=== PATIENT | male | born 1965 | race Two or more races ===

== ENCOUNTER 2018-04-19 10:11 | Day surgery (SDC) | payer MEDICAID ==
[2018-04-19] VITALS (8 sets, daily range): BP systolic 124–134; BP diastolic 76–88
[~2018-04-19] VITALS: Ht 160 cm; Wt 77.6 kg
[2018-04-19] MEDS ORDERED: LR 1000ml 1,000 ML IVLG SCH (10:44)
[2018-04-19] MEDS ORDERED: Meperidine 50mg/ml Inj(FOR RIGORS ONLY) IVP PRN (10:45)
[2018-04-19] MEDS ORDERED: HYDROcodone/Acetamin 7.5/325 tab ORAL PRN (10:45)
[2018-04-19] MEDS ORDERED: LORazepam Inj 2mg/ml 1ml IV PRN (10:45)
[2018-04-19] MEDS ORDERED: DiphenhydrAMINE 50mg/ml Inj IVP PRN (10:45)
[2018-04-19] MEDS ORDERED: Ketorolac 30mg Inj IV PRN ×2 (10:45)
[2018-04-19] MEDS ORDERED: fentaNYL 100 mcg/2 mL IV PRN (10:45)
[2018-04-19] MEDS ORDERED: oxyCODONE HCL/Acetaminophen 5/325mg ORAL PRN (10:45)
[2018-04-19] MEDS ORDERED: Atropine Sulfate 0.4mg/ml inj IVP PRN (10:45)
[2018-04-19] MEDS ORDERED: Hydromorphone 0.5mg/0.5ml inj IVP PRN (10:45)
[2018-04-19] MEDS ORDERED: Midazolam 2mg/2ml Inj IVP PRN (10:45)
[2018-04-19] MEDS ORDERED: HYDROcodone/Acetamin 5/325 tab ORAL PRN (10:45)
[2018-04-19] MEDS ORDERED: Metoclopramide 10mg/2ml Inj IVP PRN (10:45)
--- NOTE | 2018-04-19 10:48 | Immediate Post-Op Evaluation ---
Immediate Post-Op Evalulation Immediate Post-Op Evalulation Procedure: EGD/Colonoscopy Date of Evaluation: Apr 19, 2018 Time of Evaluation: 12:37 IV Fluids: 800 NS Blood Products: 0 Estimated Blood Loss: 1 Urinary Output: 0 Blood Pressure Systolic: 128 Blood Pressure Diastolic: 88 Pulse Rate: 63 Respiratory Rate: 16 O2 Sat by Pulse Oximetry: 100 Temperature (Fahrenheit): 97.6 Pain Score (1-10): 1 Nausea: No Vomiting: No Complications 0 Patient Status: awake, reacts, patent, none Hydration Status: adequate David Jones MD Apr 19, 2018 10:48
--- NOTE | 2018-04-19 10:48 | 48 Hour Post Anesthesia Eval ---
Post Anesthesia Evaluation Procedure: EGD/Colonoscopy Date of Evaluation: Apr 19, 2018 Time of Evaluation: 14:56 Blood Pressure Systolic: 129 0: 83 Pulse Rate: 66 Respiratory Rate: 16 Temperature (Fahrenheit): 97.6 O2 Sat by Pulse Oximetry: 99 Airway: patent Nausea: No Vomiting: No Pain Intensity: 1 Hydration Status: adequate Cardiopulmonary Status: 0 Mental Status/LOC: patient returned to baseline Follow-up Care/Observations: 0 Post-Anesthesia Complications: 0 Follow-up care needed: ready to discharge David Jones MD Apr 19, 2018 10:48
[2018-04-19] MEDS ORDERED: TENORMIN25 MG ORAL (10:57)
[2018-04-19] MEDS ORDERED: METFORMIN HCL500 M1 ORAL (10:57)
--- NOTE | 2018-04-19 11:19 | Anethesia Preoperative Eval ---
Anesthesia Pre-op PMH/ROS General Date of Evaluation: Apr 19, 2018 Time of Evaluation: 11:38 Anesthesiologist: Rommel ASA Score: ASA 3 Mallampati Score Class I : Soft palate, uvula, fauces, pillars visible Class II: Soft palate, uvula, fauces visible Class III: Soft palate, base of uvula visible Class IV: Only hard plate visible Mallampati Classification: Class II Surgeon: Sarah Diagnosis: Abd Pain Surgical Procedure: EGD/ Colonoscopy Anesthesia History: none Social History: alcohol use - Abuse Family History: no anesthesia problems Allergies: Coded Allergies: No Known Allergies (Unverified , 04/19/18) Medications: see eMAR Patient NPO?: Yes Past Medical History Cardiovascular: Reports: HTN Pulmonary: Reports: asthma Gastrointestinal/Genitourinary: Reports: other - Esophagael Varices, Cirrohsis Endocrine: Reports: DM Other: obesity - BMI 31 Anesthesia Pre-op Phys. Exam Physician Exam Last Vital Signs Date Time Temp Pulse Resp B/P (MAP) Pulse Ox O2 Delivery O2 Flow Rate FiO2 04/19/18 11:05 97.3 65 20 127/76 99 Room Air Constitutional: NAD Neurologic: CN 2-12 intact Cardiovascular: RRR Respiratory: CTA Gastrointestinal: S/NT/ND Airway Exam Mallampati Score: Class II MO: limited ROM: limited Anesthesia Pre-op A/P Risk Assessment & Plan Assessment: ASA 3 Plan: GA Status Change Before Surgery: No David Jones MD Apr 19, 2018 11:19
--- NOTE | 2018-04-19 11:44 | Pre-Procedure Note/Attestation ---
Pre-Procedure Note/Attestation Complete Prior to Procedure Planned Procedure: not applicable Procedure Narrative: esophagogastroduodenoscopy and colonoscopy Indications for Procedure Pre-Operative Diagnosis: esoph varices, screening colonoscopy Attestation I attest that I discussed the nature of the procedure; its benefits; risks and complications; and alternatives (and the risks and benefits of such alternatives ), prior to the procedure, with the patient (or the patient's legal traffic workforce representative). I attest that, if there was a reasonable possibility of needing a blood transfusion, the patient (or the patient's legal traffic workforce representative) was given the [facility] standardized written summary, pursuant to the [place] Blood Safety Act ([place] Health and Safety Code # 1645, as amended). I attest that I re-evaluated the patient just prior to the surgery and that there has been no change in the patient's H&P, except as documented below: Ryan Smith MD Apr 19, 2018 11:44
--- NOTE | 2018-04-19 11:47 | Short Stay Surgery H&P ---
History of Present Illness History of Present Illness Chief Complaint h/o esophageal varices, screening colon HPI Meño Orr is a 52 year old male who was admitted on for Gerd, Abdominal Pain Patient History Allergies: Coded Allergies: No Known Allergies (Unverified , 04/19/18) PAST MEDICAL HISTORY: (1) HTN (hypertension) (2) DM (3) Cirrhosis (4) Esophageal varices Medication History Scheduled Atenolol (Tenormin), 50 MG ORAL DAILY, (Reported) Metformin Hcl* (Metformin Hcl*), 500 MG ORAL ZAK, (Reported) Review of Systems Cardiovascular: Reports: no symptoms Respiratory: Reports: no symptoms Skeletal: Reports: no symptoms Genitourinary: Reports: no symptoms Neurologic: Reports: no symptoms Endocrine: Reports: no symptoms, diabetes - type 2 Hematologic: Reports: anemia Physical Exam Vital Signs Last Vital Signs Date Time Temp Pulse Resp B/P (MAP) Pulse Ox O2 Delivery O2 Flow Rate FiO2 04/19/18 11:05 97.3 65 20 127/76 99 Room Air Skin: normal HENT: normal Heart: normal Lungs: normal Abdomen: normal Extremities: normal Plan Plan of Care EGD and colonoscopy Attestation Are the patient's medical conditions optimized for surgery? Attestation Response: yes Ryan Smith MD Apr 19, 2018 11:47
[2018-04-19] MEDS ORDERED: Propofol 200mg/20ml IV ONE (12:00)
[2018-04-19] MEDS ORDERED: Lidocaine 1% MPF 10mg/ml 5ml ONE (12:00)
--- NOTE | 2018-04-19 12:29 | Endoscopy Procedure Note ---
Endoscopy Procedure Note General Indication for Procedure: screening colon, h/o esophageal varices Procedures Performed: EGD, colonoscopy Operative Findings/Diagnosis: ev, hemorrhoids Specimen: none Pt Tolerated Procedure Well: Yes Estimated Blood Loss: none Anesthesia Anesthesiologist: Mony Anesthesia: MAC Inserted Devices Implant(s) used?: No Quality Quality of Bowel Preparation: Good Did scope reach the cecum?: Yes Was there any complications?: No GI Core Measures 50 yrs or older w/o bx or poly: No 10yrs. F/U not recommended: Yes If not recommended, why?: Above average risk 10 yrs. F/U needed: Yes 18 years or older w/prev. colo: No Ryan Smith MD Apr 19, 2018 12:29
--- NOTE | 2018-04-19 20:30 | Procedure Note ---
DATE OF PROCEDURE: 04/19/2018 SURGEON: Ryan Smith M.D. PROCEDURE: Upper endoscopy with banding and colonoscopy. ANESTHESIA: Per Dr. Carney. INSTRUMENT: Olympus adult flexible upper endoscope and colonoscope. REASON FOR PROCEDURE: The procedure, risks, benefits, and possible consequences, including hemorrhage, aspiration, perforation and infection, and alternative treatments, were explained to the patient/legal guardian by Dr. Ryan Smith and the patient/legal guardian understood and accepted these risks. INDICATION: History of esophageal varices in the past requiring banding, also screening colonoscopic evaluation over age 50. Never had colonoscopy. DESCRIPTION OF PROCEDURE: After informed consent was obtained and the patient was adequately sedated, Olympus upper endoscope was advanced from mouth and second portion of the stomach and retroflexion was performed in the stomach. The patient had evidence of portal hypertensive gastropathy. No evidence of any gastric varices. The patient had evidence of 4 columns of distal esophageal varices. At this time, the upper endoscope was retrieved. Banding device was placed. A total of 5 bands were successfully placed in the distal esophagus. At this time, the upper endoscope was retrieved. The patient was turned over for colonoscopy. First, rectal exam was performed which was positive for internal hemorrhoids. Then, the scope was advanced from rectum into the cecum documented by the appendiceal orifice, ileocecal valve, and right upper quadrant palpation. Quality of prep was good. The patient had evidence of rectal varices, internal hemorrhoids, otherwise normal colonoscopic examination. SUMMARY OF FINDINGS: 1. Esophageal varices, status post banding x5. 2. Portal hypertensive gastropathy. 3. Internal hemorrhoids. 4. Rectal varices. RECOMMENDATIONS: 1. The patient to come back in the office for follow up. 2. We are going to continue current medications. 3. Consider adding beta-gracie if the blood pressure and pulse is stable as followup as an outpatient. 4. The patient will need repeat endoscopy and banding in 6 weeks. Ryan Smith M.D. DR: TIA JOB#: [id number] CC:
== END 2018-04-19 14:05 | disposition home or self-care (01) ==
LOC: GAS 10:11
DX: Z12.11 Encounter for screening for malignant neoplasm of colon (principal); K76.6 Portal hypertension; K31.89 Other diseases of stomach and duodenum; I85.00 Esophageal varices without bleeding; K64.8 Other hemorrhoids; K62.89 Other specified diseases of anus and rectum; I10 Essential (primary) hypertension; E11.9 Type 2 diabetes mellitus without complications; K74.60 Unspecified cirrhosis of liver; Z79.84 Long term (current) use of oral hypoglycemic drugs; E66.9 Obesity, unspecified; Z68.30 Body mass index [BMI] 30.0-30.9, adult
CPT/HCPCS: 43244; 45378; 82962; 93005; J2704; Z7512; 94003; 94150

== ENCOUNTER 2018-07-03 10:07 | Day surgery (SDC) | payer MEDICAID ==
[2018-07-03] VITALS (8 sets, daily range): BP systolic 124–132; BP diastolic 75–82
[~2018-07-03] VITALS: Ht 160 cm; Wt 79.4 kg
--- NOTE | 2018-07-03 06:48 | Anethesia Preoperative Eval ---
Anesthesia Pre-op PMH/ROS General Date of Evaluation: July 03, 2018 Time of Evaluation: 06:48 Anesthesiologist: jessica ASA Score: ASA 4 Mallampati Score Class I : Soft palate, uvula, fauces, pillars visible Class II: Soft palate, uvula, fauces visible Class III: Soft palate, base of uvula visible Class IV: Only hard plate visible Mallampati Classification: Class II Surgeon: allen Diagnosis: cirrhosis Surgical Procedure: esophageal banding/ colonoscopy Anesthesia History: none Family History: no anesthesia problems Allergies: Coded Allergies: No Known Allergies (Unverified , 04/19/18) Medications: see eMAR Patient NPO?: Yes Past Medical History Cardiovascular: Reports: HTN Pulmonary: Reports: asthma Gastrointestinal/Genitourinary: Reports: other - cirrhosis, gibleed Endocrine: Reports: DM HEENT: Reports: other - esopagheal varices Anesthesia Pre-op Phys. Exam Physician Exam Constitutional: NAD Neurologic: CN 2-12 intact Cardiovascular: RRR Respiratory: CTA Gastrointestinal: S/NT/ND Airway Exam Mallampati Score: Class II MO: limited Neck: short TMD: 2fb ROM: limited Anesthesia Pre-op A/P Studies Pre-op Studies: EKG - nsr, first degree avb Risk Assessment & Plan Assessment: asa4 Plan: mac Status Change Before Surgery: No Pre-Antibiotics Drug: Radha Bhagat MD July 03, 2018 06:48
[~2018-07-03 10:07] MED LIST: Atropine Inj 1mg/10ml Syr IV PRN; DiphenhydrAMINE 50mg/ml Inj IVP PRN; METFORMIN HCL500 M1 ORAL; Midazolam 2mg/2ml Inj IVP PRN; TENORMIN25 MG ORAL; fentaNYL 100 mcg/2 mL IV PRN
--- NOTE | 2018-07-03 10:19 | Pre-Procedure Note/Attestation ---
Pre-Procedure Note/Attestation Complete Prior to Procedure Planned Procedure: not applicable Procedure Narrative: egd Indications for Procedure Pre-Operative Diagnosis: esophageal varices Attestation I attest that I discussed the nature of the procedure; its benefits; risks and complications; and alternatives (and the risks and benefits of such alternatives ), prior to the procedure, with the patient (or the patient's legal data entry representative). I attest that, if there was a reasonable possibility of needing a blood transfusion, the patient (or the patient's legal data entry representative) was given the [facility] standardized written summary, pursuant to the [place] Blood Safety Act ([place] Health and Safety Code # 1645, as amended). I attest that I re-evaluated the patient just prior to the surgery and that there has been no change in the patient's H&P, except as documented below: Ryan Smith MD July 03, 2018 10:19
--- NOTE | 2018-07-03 10:19 | Short Stay Surgery H&P ---
History of Present Illness History of Present Illness Chief Complaint see recent office note HPI Meño Orr is a 53 year old male who was admitted on for Cirrohsis Patient History Allergies: Coded Allergies: No Known Allergies (Unverified , 04/19/18) Medication History Scheduled Atenolol (Tenormin), 50 MG ORAL DAILY, (Reported) Metformin Hcl* (Metformin Hcl*), 500 MG ORAL ZAK, (Reported) Plan Attestation Are the patient's medical conditions optimized for surgery? Ryan Smith MD July 03, 2018 10:19
[2018-07-03] MEDS ORDERED: Propofol 200mg/20ml IV ONE (11:00)
[2018-07-03] MEDS ORDERED: Lidocaine 1% MPF 10mg/ml 5ml ONE (11:00)
--- NOTE | 2018-07-03 11:30 | Endoscopy Procedure Note ---
Endoscopy Procedure Note General Indication for Procedure: esoph varices Procedures Performed: EGD Operative Findings/Diagnosis: same Specimen: none Pt Tolerated Procedure Well: Yes Estimated Blood Loss: none Anesthesia Anesthesiologist: jessica Anesthesia: MAC Inserted Devices Implant(s) used?: No GI Core Measures 50 yrs or older w/o bx or poly: Not Applicable 10yrs. F/U recommended: Not Applicable Ryan Smith MD July 03, 2018 11:30
--- NOTE | 2018-07-03 11:31 | Short Stay Surgery H&P ---
History of Present Illness History of Present Illness Chief Complaint esoph varices HPI Meño Orr is a 53 year old male who was admitted on for Cirrohsis Patient History Allergies: Coded Allergies: No Known Allergies (Unverified , 04/19/18) PAST MEDICAL HISTORY: (1) DM (2) HTN (hypertension) (3) Esophageal varices (4) Cirrhosis Medication History Scheduled Atenolol (Tenormin), 50 MG ORAL DAILY, (Reported) Metformin Hcl* (Metformin Hcl*), 500 MG ORAL ZAK, (Reported) Review of Systems Cardiovascular: Reports: no symptoms Respiratory: Reports: no symptoms Skeletal: Reports: no symptoms Gastrointestinal: Reports: no symptoms Genitourinary: Reports: no symptoms Neurologic: Reports: no symptoms Endocrine: Reports: no symptoms Hematologic: Reports: no symptoms Physical Exam Vital Signs Last Vital Signs Date Time Temp Pulse Resp B/P (MAP) Pulse Ox O2 Delivery O2 Flow Rate FiO2 07/03/18 10:47 Room Air 07/03/18 10:33 98.5 65 18 126/79 98 Skin: normal HENT: normal Heart: normal Lungs: normal Abdomen: normal Extremities: normal Plan Plan of Care egd Attestation Are the patient's medical conditions optimized for surgery? Attestation Response: yes Ryan Smith MD July 03, 2018 11:31
--- NOTE | 2018-07-03 12:27 | Immediate Post-Op Evaluation ---
Immediate Post-Op Evalulation Immediate Post-Op Evalulation Procedure: esophageal banding Date of Evaluation: July 03, 2018 Time of Evaluation: 12:07 IV Fluids: 300ml 0.9ns Blood Products: none Estimated Blood Loss: negligible Blood Pressure Systolic: 130 Blood Pressure Diastolic: 81 Pulse Rate: 58 Respiratory Rate: 18 O2 Sat by Pulse Oximetry: 98 Temperature (Fahrenheit): 97.6 Pain Score (1-10): 0 Nausea: No Vomiting: No Complications none Patient Status: awake, reacts, patent Hydration Status: adequate Drug: Radha Bhagat MD July 03, 2018 12:27
--- NOTE | 2018-07-03 12:28 | 48 Hour Post Anesthesia Eval ---
Post Anesthesia Evaluation Procedure: esophageal banding Date of Evaluation: July 03, 2018 Time of Evaluation: 12:09 Blood Pressure Systolic: 129 0: 78 Pulse Rate: 60 Respiratory Rate: 18 Temperature (Fahrenheit): 97.6 O2 Sat by Pulse Oximetry: 98 Airway: patent Nausea: No Vomiting: No Pain Intensity: 0 Hydration Status: adequate Cardiopulmonary Status: stable Mental Status/LOC: patient returned to baseline Post-Anesthesia Complications: none Follow-up care needed: N/A Radha De Santiago MD July 03, 2018 12:28
--- NOTE | 2018-07-03 17:30 | Procedure Note ---
DATE OF PROCEDURE: 07/03/2018 SURGEON: Ryan Smith M.D. PROCEDURE: Upper endoscopy with banding of esophageal varices. ANESTHESIA: Per Dr. Her. INSTRUMENT: Olympus adult flexible upper endoscope. INDICATION: Esophageal varices history and banding in the past. REASON FOR PROCEDURE: The procedure, risks, benefits, and possible consequences, including hemorrhage, aspiration, perforation and infection, and alternative treatments, were explained to the patient/legal guardian by Dr. Ryan Smith and the patient/legal guardian understood and accepted these risks. PROCEDURE IN DETAIL: After informed consent was obtained and the patient was adequately sedated, Olympus upper endoscope was advanced from mouth into the second portion of duodenum and retroflexion was performed in the stomach. The patient had evidence of grade 4 distal esophageal varices four columns. evidence of portal hypertensive gastropathy. No evidence of any gastric varices. Then, we pulled the scope back, put a banding device. A total of 7 bands were placed in the distal esophagus. The patient tolerated the procedure very well without any complication. SUMMARY OF FINDINGS: Status post esophageal banding x7. RECOMMENDATIONS: Repeat endoscopy in 6 to 8 weeks. The patient to follow in the office for start him on propranolol 10 mg three times a day for prevention of bleeding in the future. Ryan Smith M.D. DR: Eli JOB#: [id number] CC:
== END 2018-07-03 13:25 | disposition home or self-care (01) ==
LOC: GAS 10:07
DX: I85.00 Esophageal varices without bleeding (principal); E11.9 Type 2 diabetes mellitus without complications; I10 Essential (primary) hypertension; Z79.84 Long term (current) use of oral hypoglycemic drugs; Z79.899 Other long term (current) drug therapy; K74.60 Unspecified cirrhosis of liver; I44.0 Atrioventricular block, first degree
CPT/HCPCS: 43244; 82962; J2704; Z7512; 93005; 94003; 94150